=== PATIENT | female | born 1940 | race Caucasian/White ===

== ENCOUNTER 2017-02-11 19:22 | Inpatient (IN) | payer MEDICARE ==
--- NOTE | ~2017-02-11 | US85 ---
[facility] A Service [facility] RADIOLOGY TEXT RESULTS PATIENT: COLEEN CRAVEN LOCATION: [place] [address] : 42 UNIT #: [id number] AGE: [address]: Toyin Marx MD SEX: F ORDER DR: [id number] [facility] [address]. [place], [place] [address] [id number] I MR#: [id number] Acc #: [id number] NAME: COLEEN CRAVEN. : 1940 SEX: F STUDY DATE/TIME: 02/11/2017 19:59 UNIT: CEDOF ROOM: 56765 STUDY DESCRIPTION: US LE Veins Unilat or Ltd Stdy Attending Physician: Toyin Marx M.D. Ordering Physician: Nahed Cantu M.D. Primary Care Physician: Barney Alanis M.D. MEDICAL IMAGING REPORT This report is preliminary unless electronic signature is present EXAM Left lower extremity, venous Doppler. DATE OF EXAM 02/11/2017 INDICATIONS Left leg pain for the past 6 months. PROCEDURE Mishra-scale, color Doppler and spectral imaging of deep veins of the left leg. COMPARISON 07/20/2016 FINDINGS Deep veins left leg compress normally and show normal color Doppler and spectral characteristics. IMPRESSION No evidence for DVT in the left leg. Dictated by... Jose Juan Blankenship M.D. THIS IS AN ELECTRONICALLY VERIFIED REPORT Jose Juan Blankenship M.D. at 02/14/2017 7:22 AM BRIANNE/ifrah TD: 02/12/2017 16:16 JOB #: [id number] [facility] A Service [facility] RADIOLOGY TEXT RESULTS PATIENT: COLEEN CRAVEN LOCATION: [place] [address] : 42 UNIT #: [id number] AGE: [address]: Toyin Marx MD SEX: F ORDER DR: MEDICAL IMAGING REPORT COPY
--- NOTE | ~2017-02-11 | HP ---
Unit #: [id number] #: [id number] Patient: COLEEN CRAVEN [id number] [address] [place], [place] [address] [id number] I MR#: [id number] NAME: COLEEN CRAVEN. ROOM: 43431 Age: 76 Sex: F Admission Date: 02/12/2017 : 1940 Attending Physician: Toyin Marx M.D. Primary Care Physician: Barney Alanis M.D. HISTORY AND PHYSICAL CHIEF COMPLAINT Shortness of breath, cough, wheezing. DISCUSSION This is a 76-year-old female with a past medical of gout, spinal stenosis, depression, GERD, arthritis, hypertension, dyslipidemia, overactive bladder, obesity. She says she has been sick over a two week period of time. She initially had cold symptoms and she got worse with some shortness of breath. She said she went to see her primary care doctor. She was given Z-Germán and given some meter inhalers. She did not improve. She went to see again her primary physician's office and found to have wheezing and hypoxia. Was eventually sent to the emergency room. In the emergency room, she had extensive workup including CT scan PE protocol which shows mild cardiomegaly, mild elevation of the hemidiaphragm, otherwise unremarkable CT scan. She had a mini nebulizer given in the ER with no improvement and eventually being admitted for reactive airway disease and acute bronchospasm. She is complaining of no chest pain but shortness of breath. She is complaining also of increasing lower extremity edema and pain in the legs. She denies chest pain, she denies fever, diarrhea, vomiting, cough or other complaint. PAST MEDICAL HISTORY 1. History of gout. 2. Depression. 3. GERD. 4. Arthritis. 5. Hypertension. 6. Dyslipidemia. 7. Overactive bladder. 8. History of spinal stenosis. 9. Herniated disc L4-L5, status post epidural. PAST SURGICAL HISTORY 1. Tubal ligation. 2. Left knee arthroscope. 3. Right ankle surgery. SOCIAL HISTORY She quit smoking 25 years ago. Prior to that she says she smoked a half pack per day only for five years. Denies alcohol, denies illicit drug use. FAMILY HISTORY Positive for massive heart attack in father, at age 86. Mother of abdominal aortic aneurysm. Unit #: [id number] #: [id number] Patient: COLEEN CRAVEN MEDICATIONS Medications from home as followin. Prinivil 20 mg daily. 2. Crestor 20 mg daily. 3. Tolterodine tartrate 2 mg daily. 4. Vitamin D3, 1000 units daily. 5. Multivitamin, one tablet daily. 6. Meloxicam 15 mg daily. 7. Allopurinol 200 mg daily. 8. Lexapro 10 mg daily. 9. Protonix 40 mg daily. REVIEW OF SYSTEMS 14 review of systems all negative except as in history of presenting illness. PHYSICAL EXAMINATION GENERAL: Middle aged female lying in the bed comfortably, currently not in any distress. She is alert, awake, oriented x3. CURRENT VITAL SIGNS: Temperature 98.6, heart rate 81, respiratory rate 24, blood pressure 144/62. HEENT: Pupils equal, reactive to light and accommodation. Head is normocephalic, atraumatic. ENT - no sore throat, no sinus drainage. Throat is not erythematous. NECK: Supple. No JVD, no thyromegaly. LUNGS: She has bilateral diffuse wheezing positive throughout, expiratory and inspiratory. HEART: S1, S2. Regular rate and rhythm. No murmur, no gallop. ABDOMEN: Soft, obese, nontender, nondistended. Bowel sounds positive. EXTREMITIES: Inspection normal. No cyanosis, no clubbing, no edema. NEURO: No focal neurologic deficit. There is mild edema on the left leg. SKIN: No rash. GI: No nausea or vomiting, no diarrhea, no constipation. DIAGNOSTIC STUDIES IMAGING: She had a workup chest x-ray which was negative. She had venous Doppler which was negative. She had a CT angio which showed mild cardiomegaly and elevation of hemidiaphragm. LABORATORY: Troponin is less than 0.05. BNP is 22. Sodium 132, potassium 4.5, chloride 95, glucose 104, BUN 17, creatinine 1. CBC - white count 6, hemoglobin 10, hematocrit 3. Platelet is 274. Flu negative. ASSESSMENT AND PLAN 1. Reactive airway disease with acute bronchospasm, hypoxia, failure of outpatient treatment: Will start patient on acute nebulizer, Levaquin, Solu-Medrol. Ask pulmonary to evaluate and get also 2D echo. 2. History of spinal stenosis, status post epidural. 3. History of gout. Unit #: [id number] #: [id number] Patient: COLEEN CRAVEN 4. Depression. 5. Gastroesophageal reflux disease. 6. Arthritis. 7. Hypertension. 8. Dyslipidemia. 9. Overactive bladder. 10. Obesity. 11. DVT prophylaxis: Will place the patient on Lovenox. Dictated by Loretta Ac TD: 02/12/2017 12:07 JOB #: [id number] HISTORY AND PHYSICAL X X HISTORY AND PHYSICAL
--- NOTE | ~2017-02-11 | BMI ---
[facility] Nutrition Therapy DATE: 02/14/17 Patient: COLEEN CRAVEN Physician: AL Address: [address] [place] [address] Room/Bed: [address] [place] [address], Zip: [place] [address] Admit Date: 02/12/17 Date of : 42 Height: 5 2 Weight: 229 104.3 HIGH BMI NOTE: DX: 76 yo female admitted for SOB, cough, wheezing ANTHROPOMETRICS: HT: 5'2" WT: 104.3 kg (229#) BMI: 42.1 DIET: 2 gm sodium INTERVENTION: 1. 2 gm sodium RECOMMENDATIONS: 1. Continue 2 gm sodium diet to promote gradual weight loss towards healthy BMI Respectfully, JOCELIN NEWBY, Recreation Aide Job Parish MS, RD, LD Food and Nutritional Services [facility] cc: client file
--- NOTE | ~2017-02-11 | CO ---
Unit #: [id number] #: [id number] Patient: COLEEN CRAVEN [id number] [facility] [address]. [place], [place] [address] [id number] I MR#: [id number] NAME: COLEEN CRAVEN. ROOM: 563 Age: 76 Sex: F Admission Date: 02/12/2017 : 1940 Attending Physician: Toyin Marx M.D. Primary Care Physician: Barney Alanis M.D. CONSULTATION REPORT CONSULT REQUESTING PHYSICAN Dr. Pearson. REASON FOR CONSULTATION REQUEST Dyspnea. HISTORY OF PRESENT ILLNESS Ms. Craven is a pleasant 76-year-old, seen in room ER 9 at [facility] with four family members present. She follows with my colleague, Dr. Wilkinson and with Dr. Alanis. She is admitted with a 1 to 2 week history of severe dyspnea. She said she cannot breathe when she lays down flat. She has slight chest discomfort, but severe dyspnea when she walks across the room. She does not have any diaphoresis, or nausea associated with this. Upon presentation to [facility] [place] [facility] Emergency Room, Ms. Buckner' ECG showed no acute ST changes. Blood pressure is 142/84, heart rate is 82 and regular, height 5 feet 2 inches, weight 232 pounds, BMI 42. Labs showed a sodium of 131, potassium 4.3, creatinine 1.2. Liver enzymes were normal. Hemoglobin was 10.7, white blood count 6.0, platelet count 274,000. She has had no syncope or presyncope, and has had on and off edema over the years. She sees Dr. Wilkinson, when she has the edema, and Dr. Wilkinson has given her some Lasix. PAST MEDICAL HISTORY 1. COPD. 2. Acute bronchitis. 3. Hypertension. 4. Dyslipidemia. FAMILY HISTORY Negative for premature atherosclerotic disease. Parents in their 80s and 90s. SOCIAL HISTORY Smoked tobacco until 1994. REVIEW OF SYSTEMS As per history of present illness. Otherwise, as stated below. GENERAL: No recent fever or chills. No recent weight change. ENDOCRINE: Negative for thyroid disease. Unit #: [id number] #: [id number] Patient: COLEEN CRAVEN HEENT: No auditory or visual disturbances. GASTROINTESTINAL: No melena, no hematochezia. RESPIRATORY: Awakens to breathe. CARDIOVASCULAR: Vide supra. GENITOURINARY: No dysuria. No back pain suggestive of nephrolithiasis. NEUROLOGIC: No seizure disorder, recent CVA, or TIA. PSYCHOLOGICAL: No depression. PAST SURGICAL HISTORY BTL. ALLERGIES None. MEDICATIONS Lisinopril, Lexapro, levocetirizine, Crestor, vitamin B12, Zyloprim, calcium, pramipexole, pantoprazole, Mobic, Lasix, hydrochlorothiazide, tramadol. PHYSICAL EXAMINATION GENERAL: Pleasant, alert, in no acute distress. VITAL SIGNS: As above. SKIN: Warm and dry. No xanthelasma. MUSCULOSKELETAL: No missing digits. Moves easily for evaluation. NEUROLOGICAL: Appropriate mood and affect. Alert and oriented x3. HEENT: Pupils equal, round and reactive. No oral cyanosis. No icterus. NECK: Carotids clear to auscultation with no carotid bruits. Normal carotid upstroke bilaterally. Thyroid is normal in size and texture without masses or tenderness. CHEST: Clear to auscultation with no rales or wheezes. Good effort. LUNGS: Inspiratory and expiratory wheezes anterior and posterior, and apex and base. CARDIAC: Normal point of maximum impulse. Normal S1 and S2. No S3, S4 or rub. ABDOMEN: No hepatosplenomegaly, masses or tenderness. Normal bowel sounds. No abdominal bruits heard. EXTREMITIES: No clubbing, cyanosis or edema. Excellent posterior tibial and dorsalis pedis pulses. DIAGNOSTIC STUDIES LABORATORY RESULTS: As above regarding labs. IMPRESSION 1. Acute on chronic diastolic congestive heart failure with severe paroxysmal nocturnal dyspnea. We will give her IV Bumex over the next several days. Sodium restrict, etc. 2. Cardiac asthma. 3. Morbid obesity. 4. Untreated obstructive sleep apnea. 5. Hypertension, treated. 6. Dyslipidemia, treated. 7. Tobacco abuse until 1994. RECOMMENDATIONS 1. Diuresis. 2. Sodium restriction. 3. Fluid restriction in the hospital. 4. Check thyroid, etc. Unit #: [id number] #: [id number] Patient: COLEEN CRAVEN Thank you very much for this consultation. We will follow with you. The patient will follow up as an outpatient with Dr. Wilkinson. Dictated by... Loretta Mendenhall/wagner TD: 02/12/2017 17:50 JOB #: [id number] CONSULTATION REPORT X El Ramirez MD X CONSULTATION REPORT
--- NOTE | ~2017-02-11 | EKG ---
PATIENT: COLEEN CRAVEN UNIT #: [id number] Ventricular Rate: 122 BPM Atrial Rate: 81 BPM QRS Duration: 74 ms Q-T Interval: 376 ms QTC Calculation(Bezet): 535 ms Calculated R Richmond: -20 degrees Calculated T Richmond: 39 degrees Diagnosis Line: Sinus rhythm with short MO Diagnosis Line: Low voltage QRS Diagnosis Line: Abnormal ECG Diagnosis Line: No previous ECGs available Diagnosis Line: Confirmed by VALENTINE CHRISTENSEN MD ([id number]) on 02/14/2017 Diagnosis Line: 7:24:59 AM INTERPRETING MD: FERMIN MCDERMOTT
--- NOTE | ~2017-02-11 | CT16 ---
[facility] A Service of [facility] RADIOLOGY TEXT RESULTS PATIENT: COLEEN CRAVEN LOCATION: [facility] 563-01 : 42 UNIT #: [id number] AGE: [address]: Toyin Marx MD SEX: F ORDER DR: [id number] [facility] [address] [place], [place] [address] [id number] I MR#: [id number] Acc #: [id number] NAME: COLEEN CRAVEN. : 1940 SEX: F STUDY DATE/TIME: 02/11/2017 23:37 UNIT: [facility] ROOM: [facility] STUDY DESCRIPTION: CT Angio Chest for PE Attending Physician: Toyin Marx M.D. Ordering Physician: Nahed Cantu M.D. Primary Care Physician: Barney Alanis M.D. MEDICAL IMAGING REPORT This report is preliminary unless electronic signature is present EXAM CT chest with contrast, pulmonary arteriography protocol, 02/11/2017 HISTORY 76-year-old female in the ED complaining of 2-day history of shortness of air, weakness, wheezing and leg swelling. Venous Doppler ultrasound examination today is negative. TECHNIQUE CT examination of the chest with IV contrast using pulmonary arteriography protocol. 3-D CTA images of the pulmonary arteries were reformatted. This CT exam was performed with one or more of the following radiation dose reduction techniques: automatic control, adjustment of mA and/or kV according to patient size, and iterative reconstruction. FINDINGS No pulmonary embolism is demonstrated. Thoracic aorta is normal in caliber. Mild cardiomegaly. No pericardial effusion. Mild elevation right hemidiaphragm with scarring or atelectasis in the adjacent right lung base. Lungs otherwise clear. No airspace consolidation or pleural effusion. Small hiatal hernia. Limited upper abdominal images are unremarkable. Mild chronic compression deformity at C5 and C6, unchanged since thoracic spine MRI 01/21/2014. IMPRESSION 1. No evidence of pulmonary embolism. 2. Mild cardiomegaly. No pericardial effusion. Normal-caliber thoracic aorta. 3. Mild elevation right hemidiaphragm with scarring and/or atelectasis in the adjacent right lung base. Lungs otherwise clear. 4. Small hiatal hernia. 5. Mild chronic compression deformities at C5 and C6, unchanged since [facility] A Service of [facility] RADIOLOGY TEXT RESULTS PATIENT: COLEEN CRAVEN LOCATION: [place] [address] : 42 UNIT #: [id number] AGE: [address]: Toyin Marx MD SEX: F ORDER DR: 01/21/2014. Dictated by... Cesario Jovel M.D. THIS IS AN ELECTRONICALLY VERIFIED REPORT Cesario Jovel M.D. at 02/13/2017 12:05 AM AMINATAW/victor m TD: 02/12/2017 23:19 JOB #: [id number] MEDICAL IMAGING REPORT COPY
--- NOTE | ~2017-02-11 | DS ---
Unit #: [id number] #: [id number] Patient: COLEEN CRAVEN [id number] [address] [address] [id number] I MR#: [id number] NAME: COLEEN CRAVEN ROOM: 563 Age: 76 Sex: F Admission Date: 02/12/2017 : 1940 Discharge Date: 02/15/2017 Attending Physician: Brooke Urban M.D. Primary Care Physician: Barney Alanis M.D. DISCHARGE SUMMARY PRINCIPAL DIAGNOSES 1. Acute, now chronic, hypoxic respiratory failure, maintained on 3 liters of oxygen per nasal cannula continuously. 2. Acute on chronic diastolic congestive heart failure with ejection fraction of 60%. 3. Acute reactive airway disease. 4. Bronchitis, question acute versus chronic. 5. Acute kidney injury, prerenal, resolved. Discharge creatinine 1. 6. Probable obstructive sleep apnea with pending polysomnography. 7. Steroid-induced leukocytosis. 8. Insulin resistance with hemoglobin A1C of 6.1. 9. Hypertension. 10. Nonsustained ventricular tachycardia. 11. Probable restrictive lung disease. 12. Morbid obesity. 13. Depression. 14. Urge incontinence. 15. Hyperlipidemia. 16. Gout. 17. Gastroesophageal reflux disease. 18. Seasonal allergies. CONSULTANTS 1. Dr. iWlkinson, cardiology. 2. Dr. Key, pulmonology. DIAGNOSTIC STUDIES CARDIOVASCULAR: Two-dimensional echocardiogram revealing ejection fraction of 60% to 65%. Impaired relaxation noted, consistent with diastolic dysfunction, grade 1. IMAGING: CT angiogram of the chest on February 11, 2017 with no evidence of PE. Cardiomegaly noted. No acute lung abnormalities. Left lower extremity venous Doppler, which was negative for DVT. Chest x-ray on February 11, 2017 with no acute findings. CLINICAL HISTORY AND HOSPITAL COURSE Ms. Craven is a 76-year-old female who presented to the emergency department with increasing shortness of breath, cough and wheezing. Please refer to H and P for further details. The patient underwent CT angiogram of the chest in the emergency department, which was unremarkable. However, she was found to be hypoxic upon presentation. Unit #: [id number] #: [id number] Patient: COLEEN CRAVEN She also had significant lower extremity edema. The patient was subsequently admitted. Dr. Key and Dr. Wilkinson were consulted regarding the patient's hypoxia and edema respectively. Two-dimensional echocardiogram was done revealing diastolic heart failure. The patient was placed on a Bumex drip and had significant diuresis but, unfortunately, developed acute kidney injury as a result. Diuresis was stopped. She was given a small amount of IV fluids, and creatinine has now returned to normal. She will be maintained on Lasix as an outpatient. No plans for inpatient heart cath, although she may require an outpatient right-sided heart cath for further evaluation in the future. In regard to the patient's hypoxia, this honestly did not improve much with diuresis, steroids or antibiotics. CT scan of the chest did not reveal any significant abnormalities. The patient may indeed have some significant underlying pulmonary hypertension, although this was not reported on her echo. I suspect she also has some restrictive defect due to her obesity and, perhaps, had some reactive airway disease due to her recent infection. We are going to treat as outlined below, including some home oxygen, nebulizer treatments, and she can follow up with Dr. Key as an outpatient. The patient's other chronic conditions remained stable. There is high probability she has underlying obstructive sleep apnea, and this will be evaluated by Dr. Key as an outpatient. DISCHARGE CONDITION Stable. DISCHARGE STATUS Discharge to home with home oxygen. DISCHARGE MEDICATIONS 1. Oxygen at 3 liters per nasal cannula continuously. 2. DuoNeb nebulizer treatments q.6 hours p.r.n. shortness of breath. 3. Prednisone 20 mg tablets; 2 tablets for 2 days, then 1 tablet for 2 days, then discontinue. 4. Lexapro 10 mg daily. 5. Detrol 2 mg daily. 6. Crestor 20 mg at bedtime. 7. Prinivil 20 mg daily. 8. Allopurinol 200 mg daily. 9. A daily multivitamin. 10. Mobic 15 mg daily. 11. Protonix 40 mg daily. 12. Levocetirizine 5 mg daily. 13. Vitamin D 1,000 units p.o. daily. 14. Lasix 40 mg daily. 15. Klor-Con 20 mEq p.o. daily. DISCHARGE INSTRUCTIONS Patient was instructed to follow a heart healthy, low-salt, 1,500 mL fluid restricted diet. We also discussed cutting down soda intake given this has contributed to her weight gain, and she has received dietary education prior to discharge. She should wear oxygen at all times. FOLLOW-UP Unit #: [id number] #: [id number] Patient: COLENE CRAVEN 1. Patient will follow up with Dr. Key in approximately 2-4 weeks. Needs outpatient polysomnography and can reevaluate need for oxygen therapy as an outpatient. 2. She will follow up with Dr. Wilkinson as instructed. Appointment will be made prior to discharge. 3. She should follow up with Dr. Alanis in approximately 2 weeks. Can recheck renal function at that time. NOTE: Time spent on discharge 42 minutes. Dictated by... Brooke Urban M.D. YEFRI/margarita TD: 02/16/2017 12:42 JOB #: [id number] DISCHARGE SUMMARY Page 1 of 1 X Brooke Urban MD X DISCHARGE SUMMARY
--- NOTE | ~2017-02-11 | CO ---
Unit #: [id number] #: [id number] Patient: COLEEN CRAVEN [id number] [address] [address] [id number] I MR#: [id number] NAME: COLEEN CRAVEN. ROOM: 563 Age: 76 Sex: F Admission Date: 02/12/2017 : 1940 Attending Physician: Toyin Marx M.D. Primary Care Physician: Barney Alanis M.D. CONSULTATION REPORT CHIEF COMPLAINT Shortness of breath, cough. HISTORY OF PRESENT ILLNESS This is a 76-year-old female with a past medical history of depression, gout, arthritis, likely obstructive sleep apnea, overactive bladder, presents with a complaint of two weeks of cough, shortness of breath. Failed outpatient treatment. She had an extensive workup including CT PE protocol, mild cardiomegaly with elevation of the hemidiaphragm. Otherwise unremarkable. I am seeing the patient at the bedside complaining of shortness of breath. REVIEW OF SYSTEMS Positive pallor. No edema, no cyanosis, no jaundice. The rest as per History of Present Illness. PAST MEDICAL HISTORY 1. Gout. 2. Depression. 3. GERD. 4. Arthritis. 5. Hypertension. 6. Dyslipidemia. 7. Overactive bladder. 8. History of spinal stenosis. 9. Herniated disk. SURGICAL HISTORY 1. Tubal ligation. 2. Left knee arthroscopy. 3. Right ankle surgery. SOCIAL HISTORY Quit smoking 25 years ago. MEDICATIONS 1. Prinivil. 2. Crestor. 3. Multivitamin. 4. Meloxicam. 5. Lexapro. 6. Protonix. PHYSICAL EXAMINATION Unit #: [id number] #: [id number] Patient: COLEEN CRAVEN VITAL SIGNS: Temperature 98, pulse 81, respirations 16, blood pressure 144/62. NEUROLOGICAL: Awake, alert, oriented. No neuro deficit. HEENT: PERRLA. NECK: Supple. No JVD. CHEST: Bilateral air entry, bilateral mild rhonchi. GI: Nontender, soft. Bowel sounds positive. EXTREMITIES: No edema. DIAGNOSTIC STUDIES Labs and imaging have been reviewed. ASSESSMENT AND PLAN 1. Acute hypoxic respiratory failure. 2. Acute exacerbation of asthma. 3. Acute bronchitis. Plan is to continue patient on IV steroids, antibiotics, bronchodilator. Will need V/Q scan. May benefit from right heart catheterization. Cardiology consultation. Consider diuretics. Patient will be closely monitored. Please see orders for detailed plan. I would like to thank you for your kind consideration to involve me in taking care of this patient. Dictated by... Loretta Lazaro/hayley TD: 02/13/2017 08:31 JOB #: [id number] CONSULTATION REPORT X Ted Key MD CONSULTATION REPORT
--- NOTE | ~2017-02-11 | CR63 ---
[facility] A Service of [facility] RADIOLOGY TEXT RESULTS PATIENT: COLEEN CRAVEN LOCATION: [place] [address] : 42 UNIT #: [id number] AGE: [address]: Toyin Marx MD SEX: F ORDER DR: [id number] [facility] [address] [place], [place] [address] [id number] I MR#: [id number] Acc #: [id number] NAME: COLEEN CRAVEN. : 1940 SEX: F STUDY DATE/TIME: 02/11/2017 18:40 UNIT: CEDOF ROOM: 668[address] STUDY DESCRIPTION: CR Chest 2 View Attending Physician: Toyin Marx M.D. Ordering Physician: Pablito Burroughs M.D. Primary Care Physician: Barney Alanis M.D. MEDICAL IMAGING REPORT This report is preliminary unless electronic signature is present EXAM PA and lateral chest HISTORY Shortness of air, weakness and wheezing for 2 days. FINDINGS 2 views of the chest demonstrate the cardiac size and pulmonary vascularity are normal. No airspace infiltrates or effusions. Mild linear atelectasis or scarring in the left base. Mild mid-thoracic kyphosis. IMPRESSION No acute findings. No evidence of active disease. Dictated by... Rod Kelly M.D. THIS IS AN ELECTRONICALLY VERIFIED REPORT Rod Kelly M.D. at 02/12/2017 11:35 PM DFL/karen TD: 02/12/2017 13:25 JOB #: [id number] MEDICAL IMAGING REPORT COPY
[~2017-02-11 19:22] MED LIST: ALLEGRA PO; AMOXICILLIN PO; ANEXSIA 7.5/3251 TA1 PO; CALCIUM + D 6001 TA1 PO; CELEBREX PO; CENTRUM SILVER PO; CRESTOR10 MG PO; DETROL1 MG PO; DYAZIDE 37.5/251 CAP PO; FLEXERIL PO; HCTZ PO; LASIX PO; LEVOCETIRIZINE D5 MG PO; LEXAPRO PO; LISINOPRIL PO; LISINOPRIL20 MG PO; MEDROL4 MG/DOSE- PO; MOBIC15 MG PO; PANTOPRAZOLE SO40 MG PO; PRAMIPEXOLE DI0.5 MG PO; PRAVACHOL PO; PROTONIX PO; TRAMADOL HCL50 M1 PO; TRIAMTERENE-HC1 EAC1 PO; VICODIN PO; VITAMIN B-1000 MCG/1 INJ; VOLTAREN75 MG PO; ZYLOPRIM100 MG PO
[2017-02-11 20:45] LABS: INFLUENZA A NEG (NEG); INFLUENZA B NEG (NEG)
[2017-02-11 21:13] LABS: BASOPHIL% 0.4 % (0-2.5); DIFF IND NO; EOSINOPHIL# 0.1 X10e3 (0-0.7); EOSINOPHIL% 2.2 % (0.0-7.0); HEMATOCRIT 33.2 % (35.0-45.0); HEMOGLOBIN 10.7 gm/dL (12.0-16.0); LYMPHOCYTE% 49.8 % (17.0-45.0); MEAN CELL VOLUME 97.5 FL (83-96); MEAN CORPUSCULAR HEMOGLOBIN 31.5 PG (28-34); MEAN CORPUSCULAR HGB CONC 32.3 g/dL (30-36); MEAN PLATELET VOLUME 7.5 FL (6.5-11.5); MONOCYTE# 0.8 X10e3 (0-1.0); MONOCYTE% 12.8 % (3.0-12.0); NEUTROPHIL# 2.1 X10e3 (1.5-7.1); NEUTROPHIL% 34.8 % (40-75); PLATELET COUNT 274 X10e3 (140-420); RED BLOOD COUNT 3.41 X10e (3.90-5.30); RED CELL DISTRIBUTION WIDTH 14.1 % (11.0-15.5)
[2017-02-11 21:22] LABS: POC - CKMB 1.1 ng/mL (0.0-7.9); POC - TROPONIN <0.05 ng/mL (<=0.05)
[2017-02-11 21:32] LABS: CALCIUM SERUM 8.8 mg/dL (8.4-10.2); GLOM FILT RATE Estimated 57.6 mL/min (>60); POTASSIUM 4.5 mmol/L (3.5-5.1)
[2017-02-11 23:09] LABS: POC - CKMB <1.0 ng/mL (0.0-7.9); POC - TROPONIN <0.05 ng/mL (<=0.05)
[2017-02-12] MEDS ORDERED: MELOXICAM15 MG PO (01:06)
[2017-02-12] MEDS ORDERED: LEVOCETIRIZINE D5 MG PO (01:08)
[2017-02-12] MEDS ORDERED: ZYLOPRIM100 MG PO (01:09)
[2017-02-12] MEDS ORDERED: PRINIVIL20 M1 PO (01:10)
[2017-02-12] MEDS ORDERED: LEXAPRO PO (01:10)
[2017-02-12] MEDS ORDERED: PROTONIX PO (01:10)
[2017-02-12] MEDS ORDERED: TOLTERODINE TART2 M1 PO (01:11)
[2017-02-12] MEDS ORDERED: CRESTOR10 MG PO (01:11)
[2017-02-12] MEDS ORDERED: VITAMIN D31000 UNIT PO (01:12)
[2017-02-12] MEDS ORDERED: MULTI-VITAMIN1 EAC1 PO (01:13)
[2017-02-12 04:40] LABS: BUN/CREATININE RATIO 14.16; CALCIUM SERUM 8.3 mg/dL (8.4-10.2); CREATININE SERUM 1.2 mg/dL (0.6-1.4); GLOM FILT RATE Estimated 46.7 mL/min (>60); POTASSIUM 4.3 mmol/L (3.5-5.1)
[2017-02-12 18:28] LABS: CHOLESTEROL 133 mg/dL (0-200); HDL CHOLESTEROL 46 mg/dL (35-95); IRON SERUM 73 ug/dL (28-170); LDL CHOLESTEROL 71 mg/dL (-130); LDL/HDL RATIO 2 RATIO (0-4); TOTAL IRON BINDING CAPACITY 312 ug/dL (269-535); TRANSFERRIN 223 mg/dL (192-382); TRANSFERRIN SATURATION 23 % (20-50); TRIGLYCERIDES 78 mg/dL (10-160)
[2017-02-13 06:46] LABS: CALCIUM SERUM 8.7 mg/dL (8.4-10.2); CREATININE SERUM 1.4 mg/dL (0.6-1.4); GLOM FILT RATE Estimated 39.1 mL/min (>60); MAGNESIUM 1.7 mg/dL (1.6-3.0); POTASSIUM 3.9 mmol/L (3.5-5.1)
[2017-02-13 06:59] LABS: URINE APPEARANCE CLEAR; URINE BILIRUBIN NEG (NEG); URINE BLOOD NEG (NEG); URINE COLOR YELLOW; URINE GLUCOSE NEG (NEG); URINE KETONE NEG (NEG); URINE LEUKOCYTE ESTERASE NEG (NEG); URINE NITRATE NEG (NEG); URINE PROTEIN NEG (NEG); URINE SPECIFIC GRAVITY 1.009 (1.003-1.035); URINE UROBILINOGEN 0.2 MG/DL (NEG)
[2017-02-14 03:51] LABS: ARTERIAL BLOOD GAS CARBOXY HB 0.3 %sat (0.0-9.0); ARTERIAL BLOOD GAS HCO3 36.8 mmol/L; ARTERIAL BLOOD GAS MET HB 0.8 %sat (0.0-2.0); ARTERIAL BLOOD GAS pH 7.417 (7.350-7.450)
[2017-02-14 03:52] LABS: ARTERIAL BLOOD GAS ALLEN TEST Y; ARTERIAL BLOOD GAS ART SITE LEFT RADIAL; ARTERIAL BLOOD GAS PCO2 57.2 mmHg (35.0-45.0); ARTERIAL BLOOD GAS PO2 65.7 mmHg (80.0-100); ARTERIAL DRAW? YES
[2017-02-14 08:17] LABS: HEMOGLOBIN 12.1 gm/dL (12.0-16.0); MEAN CELL VOLUME 98.2 FL (83-96); MEAN CORPUSCULAR HEMOGLOBIN 31.2 PG (28-34); MEAN CORPUSCULAR HGB CONC 31.8 g/dL (30-36); MEAN PLATELET VOLUME 8.4 FL (6.5-11.5); RED BLOOD COUNT 3.87 X10e (3.90-5.30); RED CELL DISTRIBUTION WIDTH 14.2 % (11.0-15.5); WHITE BLOOD COUNT 19.9 X10e3 (4.0-10.5)
[2017-02-14 10:09] LABS: ALBUMIN SERUM 3.6 g/dL (3.5-5.0); BILIRUBIN,TOTAL 0.2 mg/dL (0.2-2.0); BUN/CREATININE RATIO 28.42; CALCIUM SERUM 8.1 mg/dL (8.4-10.2); CREATININE SERUM 1.9 mg/dL (0.6-1.4); GLOM FILT RATE Estimated 27.5 mL/min (>60); MAGNESIUM 2.4 mg/dL (1.6-3.0); POTASSIUM 3.7 mmol/L (3.5-5.1); PROTEIN TOTAL SERUM 6.8 g/dL (6.0-8.3)
[2017-02-15 08:05] LABS: BUN/CREATININE RATIO 32.35; CALCIUM SERUM 8.3 mg/dL (8.4-10.2); CREATININE SERUM 1.7 mg/dL (0.6-1.4); GLOM FILT RATE Estimated 31.2 mL/min (>60); MAGNESIUM 2.3 mg/dL (1.6-3.0); POTASSIUM 3.8 mmol/L (3.5-5.1)
[2017-02-16 07:48] LABS: CALCIUM SERUM 8.2 mg/dL (8.4-10.2); GLOM FILT RATE Estimated 57.6 mL/min (>60); MAGNESIUM 2.4 mg/dL (1.6-3.0)
[2017-02-16] MEDS ORDERED: COMBIVENT U/D3 M1 INH (13:13)
[2017-02-16] MEDS ORDERED: LASIX PO (13:17)
[2017-02-16] MEDS ORDERED: DELTASONE20 MG PO (13:19)
[2017-02-16] MEDS ORDERED: KCL PO (13:20)
== END 2017-02-16 18:09 | disposition home health service (06) | DRG 291 ==
LOC: CED 19:22 → CEDOF 02-12 01:40 → C5C 02-12 20:25
PROVIDERS: Emergency Medicine; Internal Medicine
PROC: B32TYZZ Computerized Tomography (CT Scan) of Left Pulmonary Artery using Other Contrast (ICD-10-PCS; principal; 2017-02-12)
PROC: B32SYZZ Computerized Tomography (CT Scan) of Right Pulmonary Artery using Other Contrast (ICD-10-PCS; 2017-02-12)
PROC: B246YZZ Ultrasonography of Right and Left Heart using Other Contrast (ICD-10-PCS; 2017-02-12)
PROC: 3E0234Z Introduction of Serum, Toxoid and Vaccine into Muscle, Percutaneous Approach (ICD-10-PCS; 2017-02-16)
DX: I11.0 Hypertensive heart disease with heart failure (principal); J96.21 Acute and chronic respiratory failure with hypoxia; N17.9 Acute kidney failure, unspecified; Z68.41 Body mass index [BMI] 40.0-44.9, adult; E88.81 Metabolic syndrome and other insulin resistance; I27.2 Other secondary pulmonary hypertension; I50.33 Acute on chronic diastolic (congestive) heart failure; J44.9 Chronic obstructive pulmonary disease, unspecified; J20.9 Acute bronchitis, unspecified; J45.909 Unspecified asthma, uncomplicated; E78.5 Hyperlipidemia, unspecified; Z87.891 Personal history of nicotine dependence; E66.01 Morbid (severe) obesity due to excess calories; G47.33 Obstructive sleep apnea (adult) (pediatric); D72.829 Elevated white blood cell count, unspecified; T38.0X5A Adverse effect of glucocorticoids and synthetic analogues, initial encounter; M10.9 Gout, unspecified; N32.81 Overactive bladder; J06.9 Acute upper respiratory infection, unspecified
CPT/HCPCS: 36415; 36600; 71020; 71275; 80048; 80053; 80061; 81003; 82553; 82728; 82803; 82947; 83036; 83540; 83550; 83735; 83880; 84443; 84484; 85025; 85027; 87804; 90688; 90732; 93005; 93306; 93971; 94640; 94760; 94761; 96361; 96374; 97110; 97116; 97162; 97166; 97530; 97535; 99285; G0009; G8978-GP; G8979-GP; G8987-GO; G8988-GO; J1650; J1956; J2920; J2930; J3475; Q9967